=== PATIENT | female | born 1970 | race American Indian/Alaskan Native ===

== ENCOUNTER 2021-08-17 10:09 | Outpatient (CLI) | payer OTHER ==
--- NOTE | 2021-08-17 12:53 | XRay Report ---
CHEST 2 VIEWS INDICATION / CLINICAL INFORMATION: ASTHMA, MULTIPLE CARDIAC ARRESTS. COMPARISON: None available. FINDINGS: SUPPORT DEVICES: None. HEART / MEDIASTINUM: No significant abnormality. LUNGS / PLEURA: No significant pulmonary or pleural abnormality. No pneumothorax. ADDITIONAL FINDINGS: No significant additional findings. IMPRESSION: 1. No acute findings. Signer Name: Angel Bermudez Jr, MD Signed: 08/17/2021 12:49 PM Workstation Name: [id number]
== END 2021-08-17 10:10 | disposition home or self-care (01) ==
LOC: XRAY 10:09
PROVIDERS: ATTEND Internal Medicine
DX: J45.909 Unspecified asthma, uncomplicated (principal); I46.9 Cardiac arrest, cause unspecified
CPT/HCPCS: 71046